=== PATIENT | male | born 1945 | race Native Hawaiian/Other Pacific Islander ===

== ENCOUNTER 2018-07-23 07:10 | Inpatient (IN) | payer MEDICARE, BC ==
--- NOTE | 2018-07-23 08:25 | ED PDOC ---
Arrival/HPI - General Chief Complaint: Shortness Of Breath Time Seen by Provider: 07/23/18 07:36 Historian: Patient, Spouse () - History of Present Illness Narrative History of Present Illness (Text): 07/23/18 08:22 A 73 year old male, whose past medical history includes COPD, CVA (left sided paralysis), diabetes type 2, cardiac catheterization, A-Fib, defribillator, DE and CHF, who is accompanied by , presents to the emergency department for cardiac catheterization. Per , patient talked to his PMD last night, and Dr. Maddox later called stating for patient to go to the ER in the morning for cardiac catheterization. mentions patient had defribillator checked by Dr. Young, to which he explained to the patient there was some elevation occuring and Dr. Maddox want catheterization to check if there could be any underlying cause to this occurrence. Patient notes experiencing dyspnea on exertion, however denies any shortness of breath, or any other complaints at this time. Also, patient mentions he is currently on Warfarin, however was instructed by Dr. Maddox to not take it last night for this morning's catheterization. mentions patient wears a left leg brace for edema. PMD: Dr. Guerin Ceo And President: Dr. Maddox Past Medical History - Provider Review Nursing Documentation Reviewed: Yes Primary Care Provider: Mariano Maddox - Infectious Disease Hx of Infectious Diseases: None - Tetanus Immunization Tetanus Immunization: Up to Date - Cardiac Hx DE: Yes Hx Hypertension: Yes Hx Pacemaker: Yes (defibrilator) - Pulmonary Hx Chronic Obstructive Pulmonary Disease (COPD): Yes - Neurological HX Cerebrovascular Accident: Yes (LEFT SIDED PARALYSIS) - HEENT Hx HEENT Disorder: (WEARS RX GLASSES) - Endocrine/Metabolic Hx Diabetes Mellitus Type 2: Yes - Integumentary Other/Comment: REDDENED FLUSHED SKIN TO LEFT ARMS HANDS, AND LEG SINCE CVA - Musculoskeletal/Rheumatological Hx Musculoskeletal Disorders: Yes Hx Falls: Yes Hx Unsteady Gait: Yes (LEFT SIDE PARALYSIS WITH LEFT HAND CONTRACTED.USES L LEG BRACE & SEPCIAL SH) - Gastrointestinal Hx Gastrointestinal Disorders: Yes (DIVETICULOSIS,ULCERATIVE COLITIS-MILD) Hx Gastroesophageal Reflux: Yes - Psychiatric Hx Depression: No Hx Emotional Abuse: No Hx Physical Abuse: No Hx Substance Use: No - Surgical History Hx Coronary Artery Bypass Graft: Yes - Suicidal Assessment Feels Threatened In Home Enviroment: No Family/Social History - Physician Review Nursing Documentation Reviewed: Yes Family/Social History: No Known Family HX Smoking Status: Former Smoker Hx Alcohol Use: Yes (DROP OF WINE AT TIMES) Hx Substance Use: No Hx Substance Use Treatment: No Allergies/Home Meds Allergies/Adverse Reactions: Allergies celecoxib [From Celebrex] Allergy (Verified 07/23/18 07:18) ITCHING latex Allergy (Verified 07/23/18 07:18) ITCHING Sulfa (Sulfonamide Antibiotics) Allergy (Verified 07/23/18 07:18) ITCHING Home Medications: Home Meds Medication Instructions Recorded Confirmed Isosorbide Mononitrate [Imdur] 60 mg PO DAILY 10/15/12 01/21/17 Levetiracetam [Keppra] 1,000 mg PO BID 10/15/12 01/21/17 Metoprolol Succinate 50 mg PO DAILY 10/15/12 01/21/17 Atorvastatin [Lipitor] 20 mg PO DAILY 05/20/15 01/21/17 Digoxin [Lanoxin] 0.25 mg PO DAILY 05/20/15 01/21/17 Enalapril Maleate [Vasotec] 10 mg PO BID 05/20/15 01/21/17 Furosemide [Lasix] 40 mg PO BID 05/20/15 01/21/17 Potassium Chloride [Klor-Con 10] 10 meq PO DAILY 05/20/15 01/21/17 Tamsulosin [Flomax] 0.4 mg PO DAILY 05/20/15 01/21/17 Warfarin Sodium [Jantoven] 7.5 mg PO QPM 05/20/15 01/21/17 Baclofen [Lioresal] 40 mg PO TID 01/21/17 01/21/17 Insulin Human NPH [Humulin N] 6 unit SQ QPM 01/21/17 01/21/17 Insulin Human NPH [Humulin N] 19 unit SQ QAM 01/21/17 01/21/17 Insulin Regular, Human [Novolin R] 13 units SQ AMHS 01/21/17 01/21/17 Pantoprazole Sodium [Protonix] 40 mg PO DAILY 01/21/17 01/21/17 Review of Systems - Physician Review All systems were reviewed & negative as marked: Yes - Review of Systems Respiratory: absent: SOB Cardiovascular: SALINAS Physical Exam - Physical Exam Narrative Physical Exam (Text): Gen: VS reviewed, alert, well developed, well nourished, nontoxic, mild distress. ENT: normal pharynx. Eye: EOMI, PERRL. Neck: no JVD, supple, no adenopathy. CV: regular rate, regular rhythm, no rubs, no murmur, no gallops, S1, S2, pulses equal and strong. Pulm: no distress, clear to auscultation, no wheeze, no rhonchi, breath sounds equal, no rales. Abd: soft, nontender, no guarding, no rebound, no rigidity, normal bowel sounds. Ext: pitting edema to left leg. Skin: good color, no rash, no cyanosis. Psych: responds appropriately to questions, normal affect. Neuro: oriented x 3, CN2-12 intact grossly, motor intact, sensation intact. subtle left facial droop, flaccid paralysis of left hand. Vital Signs Reviewed: Yes Vital Signs Temp Pulse Resp BP Pulse Ox 07/23/18 07:33 98.5 F 73 12 128/67 96 Temperature: Afebrile Blood Pressure: Normal Pulse: Regular Respiratory Rate: Normal Appearance: Positive for: Well-Appearing, Non-Toxic, Comfortable Pain Distress: None Mental Status: Positive for: Alert and Oriented X 3 Medical Decision Making ED Course and Treatment: 07/23/18 08:25 Impression: 73 year old male here for cardiac catheterization with Dr. Maddox. Plan: -- EKG -- Chest X-ray -- Labs -- Reassess and disposition Progress Notes: 07/23/18 08:[address] maddox, cardiology, request that the patient be started on milrinone drip and admission to service of dr. grewal. admit accepted by dr. grewal to his service - Lab Interpretations I have reviewed the lab results: Yes - RAD Interpretation Narrative RAD Interpretations (Text): 07/23/2018 11:11 Chest X-ray IMPRESSION: No active pulmonary disease. Dictator: Krystal Marti MD Radiology Orders: 07/23/18 08:20 CXR [CHEST TWO VIEWS (PA/LAT)] [RAD] Stat - EKG Interpretation EKG Interpretation (Text): EKG: Ordered, reviewed, and independently interpreted the EKG. Rate : 63 BPM Rhythm : Demanded ventricular pacemaker, A-fib. Interpretation : No ST-segment elevations or depressions, no T-wave inversions, normal intervals. Comparison : No previous EKG for comparison. - Scribe Statement The provider has reviewed the documentation as recorded by the Mckinley Sandhu Provider Scribe Attestation: All medical record entries made by the Scribe were at my direction and personally dictated by me. I have reviewed the chart and agree that the record accurately reflects my personal performance of the history, physical exam, medical decision making, and the department course for this patient. I have also personally directed, reviewed, and agree with the discharge instructions and disposition. Disposition/Present on Arrival - Present on Arrival Any Indicators Present on Arrival: No History of DVT/PE: No History of Uncontrolled Diabetes: No Urinary Catheter: No History of Decub. Ulcer: No History Surgical Site Infection Following: None - Disposition Have Diagnosis and Disposition been Completed?: Yes Diagnosis: Dyspnea Disposition: HOSPITALIZED Disposition Time: 09:00 Patient Plan: Admission Patient Problems: Current Active Problems Problem Status Onset Dyspnea Acute Condition: GUARDED
[2018-07-23 08:36] LABS: BASO # 0.02 K/mm3 (0.0-2.0); BASO % 0.3 % (0.0-3.0); EOS # 0.4 (0.0-0.7); EOS % 5.6 % (1.5-5.0); HEMOGLOBIN 13.9 g/dL (14.0-18.0); LYMPH # 3.2 (1.2-3.4); LYMPH % 41.5 % (22.0-35.0); MEAN CELL VOLUME 86.4 fl (80.0-105.0); MEAN CORPUSCULAR HEMOGLOBIN 28.6 pg (25.0-35.0); MEAN CORPUSCULAR HGB CONC 33.1 g/dl (31.0-37.0); MEAN PLATELET VOLUME 11.8 fl (7.0-11.0); MONO # 0.5 (0.1-0.6); MONO % 5.9 % (1.0-6.0); RBC 4.86 10^6/uL (3.5-6.1); RED CELL DISTRIBUTION WIDTH 14.1 % (11.5-14.5); WHITE BLOOD COUNT 7.7 10^3/uL (4.5-11.0)
[2018-07-23 08:45] LABS: ALB/GLOB RATIO 1.4 (1.1-1.8); ALBUMIN 4.5 g/dL (3.0-4.8); ALT/SGPT 27 U/L (7-56); AST/SGOT 38 U/L (17-59); BLOOD UREA NITROGEN 31 mg/dL (7-21); CALCIUM 9.6 mg/dL (8.4-10.5); GFR NON-AFRICAN AMERICAN > 60; INR 2.64; PARTIAL THROMBOPLASTIN TIME 51.3 Seconds (26.9-38.3); PROTHROMBIN TIME 29.8 SECONDS (9.4-12.5)
[2018-07-23 08:57] LABS: B-TYPE NATRIURETIC PEPTIDE 1010 pg/mL (0-450); TROPONIN I 0.02 ng/mL
[2018-07-23] MEDS ORDERED: Milrinone 20mg/100ml D5W 100 ML IV PRN ×2 (08:57→09:18)
[2018-07-23] MEDS ORDERED: Primacor 1 mg/ml Inj (10 ml) IVP ONE ×2 (09:02→09:18)
[2018-07-23 09:14] VITALS: BMI 22.1
[2018-07-23] MEDS: Milrinone 20mg/100ml D5W 100 ML IV PRN ×2 (10:59→20:12)
--- NOTE | 2018-07-23 11:14 | RAD ---
Date of service: 07/23/2018 HISTORY: Dyspnea COMPARISON: 05/20/2015. TECHNIQUE: Chest PA and lateral FINDINGS: LINES AND TUBES: None. LUNG AND PLEURA: The lungs are well inflated. There is mild pulmonary venous congestion. There is bibasilar atelectasis no pleural effusion or pneumothorax. HEART AND MEDIASTINUM: The heart is not enlarged. There are aortic atherosclerotic calcifications present. There is stable position of left-sided dual lead permanent pacing device. Status post CABG. The hilar and mediastinal contours are within normal limits. SKELETAL STRUCTURES: The bony structures are within normal limits for the patient's age. VISUALIZED UPPER ABDOMEN: Normal. OTHER FINDINGS: None. IMPRESSION: No active pulmonary disease.
[2018-07-23] MEDS: Pantoprazole 40 mg EC Tab PO SCH (12:07)
[2018-07-23] MEDS: Metoprolol Succinate 50 mg XL Tab PO SCH (12:08)
[2018-07-23] MEDS: Digoxin 250 mcg (0.25 mg) Tab PO SCH (12:08)
[2018-07-23] MEDS: Potassium Chloride 10 mEq ER Tab PO SCH (12:08)
[2018-07-23] MEDS: Insulin Reg-MEDIUM-Coverage SC SCH ×3 (12:09→21:33)
--- NOTE | 2018-07-23 15:32 | CON ---
DATE OF CONSULTATION: 07/23/2018 CARDIOLOGY CONSULTATION HISTORY: The patient is a 73-year-old male, who presents with several days of progressive exertional shortness of breath. There is no obvious chest pain noted. The patient's past medical history includes a remote anterior wall myocardial infarction with an ejection fraction that is under 20%. The patient during his acute myocardial infarction developed a CVA, which resulted in left-sided paralysis with which he has been dealing with for many years. He has had a defibrillator placed. He has diabetes mellitus as well as history of CHF in the past. He was found to have higher fluid levels on his defibrillator check. SOCIAL HISTORY: The patient does not smoke. REVIEW OF SYSTEMS: Review of systems is dominated by his shortness of breath. There is edema in the lower extremities. He does admit to pedal edema. Review of systems are as above. PHYSICAL EXAMINATION: VITAL SIGNS: Blood pressure 122/68, heart rate is in the 70s, atrial fibrillation. NECK: Negative JVD. LUNGS: Decreased breath sounds. HEART: Reveals S1, S2. EXTREMITIES: Trace edema. LABORATORY DATA: EKG shows atrial fibrillation. Chest x-ray is pending. Laboratories revealed hemoglobin of 13.9. Chemistries, troponin is negative, proBNP is 1010 with a glucose of 121. The INR is 2.64. IMPRESSION: 1. Acute systolic congestive heart failure. 2. Low cardiac output syndrome. 3. History of atrial fibrillation. 4. History of cerebrovascular accident. 5. History of ischemic dilated cardiomyopathy. 6. Old anterior wall myocardial infarction. 7. Coronary artery disease. 8. Remote cerebrovascular accident. PLAN: Given these findings, we will start the patient on IV milrinone today. We will continue his Lasix. We will was add Lasix 40 once a day. Mariano Reyes MD
[2018-07-23] MEDS: Insulin Human NPH 1 UNITS/0.01 ML SC SCH (17:16)
--- NOTE | 2018-07-23 19:24 | CARD ---
APPROVED REPORT Date of service: 07/23/2018 EKG Measurement Heart [id number] <Conclusion> Demand pacemaker, interpretation is based on intrinsic rhythm Rare intrinsic beats Low voltage QRS T wave abnormalities Abnormal ECG
--- NOTE | 2018-07-23 20:03 | HP ---
DATE OF EXAM: 07/23/2018 HISTORY OF PRESENT ILLNESS: I was called in to the ER to admit this nice young man. He is a 73-year-old white man who has a history of COPD, CVA with left paralysis , diabetes, cardiac catheterizations, AFib, defibrillator, [place], CHF who was brought in by his , who Dr. Reyes sent him in to be put on the Primacor drip and he is now short of breath. PAST MEDICAL HISTORY: He has got a big past medical history; [place], he has hypertension, defibrillator, COPD, left-sided paralysis from a stroke. He wears glasses, diabetes. He has reddened flushed skin to left arms, hands, and legs since the CVA. He has falls, unsteady gait with left-sided contractures and weakness. He had diverticulosis and ulcerative colitis and GERD. He had a coronary artery bypass graft. FAMILY HISTORY: No known family history. SOCIAL HISTORY: A former smoker. Drinks wine. No substance abuse. ALLERGIES: HE IS ALLERGIC TO CELEBREX, LATEX AND SULFA. MEDICATIONS: He is on Imdur, Keppra, metoprolol, Lipitor, Lanoxin, Vasotec, Lasix, potassium, Flomax, Jantoven, Willy-Brittney, insulin, Novolin, and Protonix. REVIEW OF SYSTEMS: He is weak. He has got short of breath. He has dyspnea on exertion. No chest pain. No throat pain. No vision or hearing changes. Old left-sided weakness. No abdominal pain, nausea, vomiting, constipation or diarrhea. No skin issues that he knows of. PHYSICAL EXAMINATION: VITAL SIGNS: A 98.5 temp, 73 pulse, respiratory rate, 120/67 blood pressure and 96% O2 sat. HEENT: Head is atraumatic and normocephalic. Extraocular muscles intact. Pupils reactive to light. Throat is dry. NECK: No JVD. HEART: Regular rate. Normal S1 and S2. LUNGS: Decreased breath sounds. No wheezes or rhonchi. ABDOMEN: Soft and nontender. Positive bowel sounds. No guarding. No rebound or CVA tenderness. EXTREMITIES: He has got pitting edema left leg +1. SKIN: From what I could see is intact. NEUROLOGIC: He is alert. Normal affects. Cranial nerves II through XII grossly intact. A left-sided weakness. He has a left facial droop. He is alert and oriented x3. Taken care by his . LABORATORY DATA: He has a sodium 137, potassium 4.1, BUN 31, creatinine 0.8, GFR is greater than 60, sugar is 121, calcium is 9.6, total bili is 0.6, AST is 38, ALT is 27, alk phos 69, troponin I is 0.02, BNP 1010, total protein 7.7 and albumin 4.5. INR 2.64. A 7.7 white count, 13.9 hemoglobin, 42 hematocrit with 187 platelets. ASSESSMENT AND PLAN: Chest x-ray and electrocardiogram are pending. He will have a consult with Dr. Reyes. He will be on a milrinone drip, his regular medications, most probably Lasix. I will discuss this with Dr. Reyes. He will be on Telemetry. Congestive heart failure. Carson Ferraro DO MTDD
[2018-07-24 07:15] LABS: INR 2.26; PROTHROMBIN TIME 25.5 SECONDS (9.4-12.5)
[2018-07-24 07:17] LABS: HEMOGLOBIN 14.1 g/dL (14.0-18.0); MEAN CELL VOLUME 86.5 fl (80.0-105.0); MEAN CORPUSCULAR HGB CONC 32.4 g/dl (31.0-37.0); MEAN PLATELET VOLUME 11.3 fl (7.0-11.0); RBC 5.03 10^6/uL (3.5-6.1); WHITE BLOOD COUNT 9.4 10^3/uL (4.5-11.0)
[2018-07-24 07:41] LABS: ALB/GLOB RATIO 1.4 (1.1-1.8); ALBUMIN 4.7 g/dL (3.0-4.8); ALT/SGPT 30 U/L (7-56); AST/SGOT 35 U/L (17-59); BLOOD UREA NITROGEN 22 mg/dL (7-21); GFR NON-AFRICAN AMERICAN > 60
[2018-07-24] MEDS: Insulin Reg-MEDIUM-Coverage SC SCH ×4 (08:40→21:31)
[2018-07-24] MEDS: Pantoprazole 40 mg EC Tab PO SCH (10:29)
[2018-07-24] MEDS: Digoxin 250 mcg (0.25 mg) Tab PO SCH (10:29)
[2018-07-24] MEDS: Milrinone 20mg/100ml D5W 100 ML IV PRN (10:29)
[2018-07-24] MEDS: Potassium Chloride 10 mEq ER Tab PO SCH (10:29)
[2018-07-24] MEDS: Metoprolol Succinate 50 mg XL Tab PO SCH (10:29)
[2018-07-24] MEDS: LEVETIRACETAM 500 MG PO SCH ×2 (12:02→21:32)
--- NOTE | 2018-07-24 16:29 | PN ---
DATE: 07/24/2018 SUBJECTIVE: He is sitting out of bed to chair. He is on a Primacor drip, milrinone. He is also on Lasix IV. He has shortness of breath steadily with CHF. He is starting to feel a little bit better. PHYSICAL EXAMINATION: VITAL SIGNS: 98.5 temperature, 69 pulse, 132/72 blood pressure, 18 respiratory rate, 95% O2 sat on room air. HEENT: Head is atraumatic, normocephalic. HEART: Regular rate. LUNGS: Decreased breath sounds. EXTREMITIES: No edema at this time with trace in the feet. He has left-sided weakness from the stroke, a very old stroke. LABORATORY DATA: He had labs done. 9.4 white count, 14.1 hemoglobin, 42.5 hematocrit with 181 platelets. INR is 2.26. 137 sodium, potassium 4.6, BUN is 22, creatinine 0.7, GFR is greater than 60, sugar is 150. Calcium is 10, total bili is 0.6. AST is 35, ALT is 30, alk phos 66, total protein 7.9. His BNP was 1010. MEDICATIONS: He is on Coumadin, insulin, Imdur, potassium, Lanoxin, Lasix IV, baclofen, Lipitor, Primacor drip, Toprol, and Zestril. ASSESSMENT AND PLAN: He is being seen by Cardiology. Continue aggressive treatment and care. Physical therapy, out of bed to chair, and diurese. Carson Ferraro DO
[2018-07-24] MEDS: Insulin Human NPH 1 UNITS/0.01 ML SC SCH (17:29)
--- NOTE | 2018-07-24 17:53 | PN ---
DATE: 07/24/2018 SUBJECTIVE: The patient denies any chest pain. He is comfortable, breathing boone . PHYSICAL EXAMINATION: VITAL SIGNS: Blood pressure 135/72, heart rate 69, temperature 98.4, respirations 18. HEENT: Normocephalic. CHEST: Minimal basilar rhonchi. HEART: S1, S2, irregular. EXTREMITIES: No edema. There is contracture deformity of the left arm and hand related to earlier stroke and the patient has left leg support for the same reason. LABORATORY DATA: Chest x-ray revealed mild CHF and ICD, biventricular pacemaker. Sternotomy wires noted. Yesterday's hemoglobin and hematocrit, white count and platelet count are within normal limits. Today's SMA-7 is within normal limits except for glucose of 150, BUN and creatinine of 22 and 0.7. EKG done yesterday revealed demand pacemaker, rare beats, low-voltage QRS complex and T wave abnormality. The most recent echo is from 12/2016, revealed dilated and severely hypokinetic left systolic function and moderate pulmonary hypertension. ASSESSMENT: 1. Ischemic cardiomyopathy, status post ICD placement. 2. Moderate pulmonary hypertension. 3. Atrial fibrillation. 4. 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 5. Coronary artery disease with history of coronary artery bypass surgery in the past. RECOMMENDATIONS: Continue current Imdur 60 mg once a day, Klor-Con 10 mEq once a day, Lanoxin 0.25 mg once a day, Lasix 20 mg intravenously daily, Lipitor 20 mg once a day. Continue milrinone infusion, continue Protonix 40 mg once a day, Toprol XL 50 mg once a day, Zestril 20 mg once a day. Today's INR is 2.26 and the patient would receive Coumadin 7.5 mg orally today. Shin Membreno MD
[2018-07-25 07:31] LABS: ALB/GLOB RATIO 1.4 (1.1-1.8); ALT/SGPT 35 U/L (7-56); AST/SGOT 29 U/L (17-59); BLOOD UREA NITROGEN 24 mg/dL (7-21); CALCIUM 9.7 mg/dL (8.4-10.5); GFR NON-AFRICAN AMERICAN > 60; INR 2.53; PROTHROMBIN TIME 28.6 SECONDS (9.4-12.5)
[2018-07-25 07:32] LABS: HEMOGLOBIN 14.4 g/dL (14.0-18.0); MEAN CELL VOLUME 86.4 fl (80.0-105.0); MEAN CORPUSCULAR HEMOGLOBIN 28.3 pg (25.0-35.0); MEAN CORPUSCULAR HGB CONC 32.8 g/dl (31.0-37.0); MEAN PLATELET VOLUME 11.4 fl (7.0-11.0); RBC 5.08 10^6/uL (3.5-6.1); RED CELL DISTRIBUTION WIDTH 13.7 % (11.5-14.5); WHITE BLOOD COUNT 7.7 10^3/uL (4.5-11.0)
[2018-07-25] MEDS: Insulin Reg-MEDIUM-Coverage SC SCH ×4 (08:01→21:43)
[2018-07-25] MEDS: Pantoprazole 40 mg EC Tab PO SCH (09:46)
[2018-07-25] MEDS: Potassium Chloride 10 mEq ER Tab PO SCH (09:49)
[2018-07-25] MEDS: Metoprolol Succinate 50 mg XL Tab PO SCH (09:49)
[2018-07-25] MEDS: Digoxin 250 mcg (0.25 mg) Tab PO SCH (09:49)
[2018-07-25] MEDS: LEVETIRACETAM 500 MG PO SCH ×2 (11:37→22:51)
--- NOTE | 2018-07-25 16:55 | PN ---
DATE: 07/25/2018 SUBJECTIVE: He is resting comfortably in his room. He is on a milrinone drip. He is on IV Lasix. He is on Coumadin, insulin, potassium, digoxin, baclofen, Lipitor, Protonix, metoprolol and Zestril. PHYSICAL EXAMINATION: VITAL SIGNS: He has a 98.4 temperature, 86 pulse, 140/74 blood pressure, 20 respiratory rate, 96% sat on room air. HEAD: Atraumatic and normocephalic. HEART: Regular rate. LUNGS: Decreased breath sounds, but clear. No wheezes, no rhonchi, no rales. ABDOMEN: Soft. EXTREMITIES: No edema. He has got weakness in the left side secondary to an old stroke. LABORATORY DATA: Checking his labs; 136 sodium, potassium 3.9, BUN 24, creatinine 0.74, GFR greater than 60, sugar is 212, calcium of 9.7, total bili is 0.6. AST is 29, ALT is 35, alk phos 60, total protein 6.9. White count 7.7, hemoglobin 14.4, hematocrit 40.9, platelets 164. INR is 2.53. ASSESSMENT AND PLAN: He has CHF, ischemic dilated cardiomyopathy as per Cardiology, on IV milrinone, IV Lasix. Check his labs tomorrow. Get him out of bed to chair and as per Cardiology. Carson Ferraro DO
[2018-07-25] MEDS: Insulin Human NPH 1 UNITS/0.01 ML SC SCH (17:40)
[2018-07-25] MEDS: Milrinone 20mg/100ml D5W 100 ML IV PRN (20:33)
[2018-07-26 00:50] VITALS: RESP 19
--- NOTE | 2018-07-26 01:10 | PN ---
DATE: 07/25/2018 SUBJECTIVE: The patient is still on milrinone infusion, no reported ventricular tachycardia or hypotension. The patient denies any chest pain at this time. PHYSICAL EXAMINATION: VITAL SIGNS: Blood pressure 99/53, heart rate 60, temperature 97.5, and respirations 20. HEENT: Normocephalic. CHEST: Clear. HEART: S1 and S2, regular. EXTREMITIES: No edema. NEUROLOGIC: Consistent with left hemiplegia with contracture deformity of the left wrist. LABORATORY DATA: Today's hemoglobin and hematocrit 14.4 and 43.9. White count and platelet count are within normal limits. Today SMA-7, sodium 136, potassium 3.9, chloride 100, CO2 of 27, glucose 112, BUN 24, and creatinine 0.7. ASSESSMENT: 1. Ischemic cardiomyopathy, status post implantable cardioverter defibrillator placement. 2. Mild pulmonary hypertension. 3. Atrial fibrillation. 4. History of cerebrovascular accident with residual left hemiplegia. 5. Uncontrolled diabetes mellitus. RECOMMENDATIONS: Continue current Coumadin at 7.5 mg. Today's INR was 2.53. Continue Imdur 60 mg once a day, Klor-Con at 10 mEq once a day, Lanoxin 0.25 mg once a day, Lasix 40 mg intravenously daily, milrinone infusion at 0.375 mcg/kg per minute. Continue Protonix 40 mg p.o. once a day, Toprol-XL 50 mg once a day, and Zestril 20 mg once a day. Obtain serum digoxin level. Shin Membreno MD
[2018-07-26 06:05] VITALS: TEMP 97.5; O2SAT 98
[2018-07-26 06:36] LABS: HEMOGLOBIN 14.6 g/dL (14.0-18.0); MEAN CELL VOLUME 86.2 fl (80.0-105.0); MEAN CORPUSCULAR HEMOGLOBIN 28.3 pg (25.0-35.0); MEAN CORPUSCULAR HGB CONC 32.9 g/dl (31.0-37.0); MEAN PLATELET VOLUME 11.7 fl (7.0-11.0); RBC 5.15 10^6/uL (3.5-6.1); RED CELL DISTRIBUTION WIDTH 13.7 % (11.5-14.5); WHITE BLOOD COUNT 7.3 10^3/uL (4.5-11.0)
[2018-07-26 06:41] LABS: INR 3.12; PROTHROMBIN TIME 35.3 SECONDS (9.4-12.5)
[2018-07-26 06:54] LABS: ALB/GLOB RATIO 1.3 (1.1-1.8); ALT/SGPT 36 U/L (7-56); AST/SGOT 33 U/L (17-59); BLOOD UREA NITROGEN 27 mg/dL (7-21); CALCIUM 9.9 mg/dL (8.4-10.5); GFR NON-AFRICAN AMERICAN > 60
[2018-07-26] MEDS: Insulin Reg-MEDIUM-Coverage SC SCH (08:26)
[2018-07-26] MEDS: Potassium Chloride 10 mEq ER Tab PO SCH (09:12)
[2018-07-26] MEDS: Metoprolol Succinate 50 mg XL Tab PO SCH (09:15)
[2018-07-26] MEDS: Digoxin 250 mcg (0.25 mg) Tab PO SCH (09:15)
[2018-07-26] MEDS: Pantoprazole 40 mg EC Tab PO SCH (09:16)
[2018-07-26 09:17] VITALS: BP 119/64; PULSE 81
--- NOTE | 2018-07-26 12:22 | PN ---
DATE: 07/26/2018 CARDIOLOGY FOLLOWUP SUBJECTIVE: The patient's breathing is much improved. No chest pain noted. PHYSICAL EXAMINATION: VITAL SIGNS: Blood pressure is 120/60, the heart rate is in the 60s, normal sinus rhythm. NECK: Negative JVD. LUNGS: Without rales. HEART: S1, S2. EXTREMITIES: Without edema. LABORATORY DATA: BUN and creatinine unremarkable. Glucose 153. IMPRESSION: 1. Resolution of congestive heart failure on inotropic therapy. 2. Ischemic dilated cardiomyopathy with an ejection fraction of less than 20%. 3. History of old anterior wall myocardial infarction. 4. Coronary artery disease. 5. Diabetes mellitus. Given these findings, the patient is improved from admission. We will discontinue milrinone today and we will discontinue telemetry, the patient can be discharged today. Followup and instructions were given to the patient in detail, his medications were reviewed with him in detail. Mariano Reyes MD
--- NOTE | 2018-07-27 00:17 | DS ---
HOSPITAL COURSE: He is being discharged today. The milrinone drip was stopped. He is going to go home on Coumadin, insulin, Imdur, potassium, Lanoxin, Lasix, Lioresal, Lipitor, Protonix, metoprolol, and Zestril. PHYSICAL EXAMINATION: VITAL SIGNS: He has a 97.5 temperature, 64 pulse, 120/60 blood pressure, 19 respiratory rate, and 98% O2 saturation on room air. HEENT: His head is atraumatic and normocephalic. HEART: Regular rate. LUNGS: Decreased breath sounds, but clear. ABDOMEN: Soft. EXTREMITIES: He has got left-sided weakness and paralysis from an old stroke. ASSESSMENT AND PLAN: He is here for congestive heart failure. Discussed with Dr. Reyes, the draw hand. I called the medicines to his pharmacy at [facility] in [place]. He will follow up with I believe Dr. Fermin who is his primary care doctor this week. Carson Ferraro DO
== END 2018-07-26 11:55 | disposition home or self-care (01) | DRG 291 ==
LOC: ED 07:10 → ERH 09:00 → 2RNO 11:31
PROVIDERS: ADMIT Family Medicine; ATTEND Family Medicine
DX: I11.0 Hypertensive heart disease with heart failure (principal); I50.21 Acute systolic (congestive) heart failure; I69.354 Hemiplegia and hemiparesis following cerebral infarction affecting left non-dominant side; K51.90 Ulcerative colitis, unspecified, without complications; I27.20 Pulmonary hypertension, unspecified; I25.10 Atherosclerotic heart disease of native coronary artery without angina pectoris; J44.9 Chronic obstructive pulmonary disease, unspecified; I42.0 Dilated cardiomyopathy; I25.5 Ischemic cardiomyopathy; I48.91 Unspecified atrial fibrillation; E11.65 Type 2 diabetes mellitus with hyperglycemia; K21.9 Gastro-esophageal reflux disease without esophagitis; K57.90 Diverticulosis of intestine, part unspecified, without perforation or abscess without bleeding; Z95.810 Presence of automatic (implantable) cardiac defibrillator; I25.2 Old myocardial infarction; Z79.01 Long term (current) use of anticoagulants; Z79.4 Long term (current) use of insulin; Z87.891 Personal history of nicotine dependence; Z95.1 Presence of aortocoronary bypass graft; Z88.2 Allergy status to sulfonamides; Z88.8 Allergy status to other drugs, medicaments and biological substances; Z91.040 Latex allergy status